=== PATIENT | male | born 1970 | race Caucasian/White ===

== ENCOUNTER 2020-09-28 13:28 | Emergency (ER) | payer MEDICAID, OTHER ==
[~2020-09-28] VITALS: Ht 167.6 cm; Wt 73.7 kg
[~2020-09-28 13:28] MED LIST: CYCL-1 PO; FLUT16SP26 BOTHNARES; HYDR12.522 PO; IBUP-1986 PO; PRED50TA PO
[2020-09-28] MEDS ORDERED: TETanus/Pertussis (Acell)/Diphther VAC/PF (Tdap-Adult) 0.5ml syringe IMVAC ONE (14:15)
[2020-09-28 14:33] LABS: BASOPHILS # (AUTO) 0.1 X10'3 (0-0.2); BASOPHILS % (AUTO) 0.5 % (0-1); EOSINOPHILS # (AUTO) 0.4 X10'3 (0-0.9); EOSINOPHILS % (AUTO) 2.8 % (0-6); HEMATOCRIT 47.1 % (42.0-52.0); HEMOGLOBIN 16.1 g/dl (14.0-17.9); LYMPHOCYTES # (AUTO) 1.2 X10'3 (1.1-4.8); LYMPHOCYTES % (AUTO) 9.3 % (21-51); MEAN CORPUSCULAR HEMOGLOBIN 29.4 PG (27.0-31.0); MEAN CORPUSCULAR HGB CONC 34.3 g/dL (33.0-36.5); MEAN CORPUSCULAR VOLUME 85.8 FL (78-98); MEAN PLATELET VOLUME 8.1 FL (7.4-10.4); MONOCYTES # (AUTO) 1.1 X10'3 (0-0.9); MONOCYTES % (AUTO) 9.3 % (2-12); NEUTROPHILS # (AUTO) 9.6 X10'3 (1.8-7.7); NEUTROPHILS % (AUTO) 78.1 % (42-75); PLATELET COUNT 294 X10'3 (140-440); RED BLOOD COUNT 5.48 X10'6 (4.70-6.10); RED CELL DISTRIBUTION WIDTH 13.4 % (11.5-14.5); WHITE BLOOD COUNT 12.3 X10'3 (4.5-11.0)
[2020-09-28 14:48] LABS: ALANINE AMINOTRANSFERASE 29 U/L (12-78); ALBUMIN 3.3 G/DL (3.4-5.0); ALBUMIN/GLOBULIN RATIO 0.9 (1.1-1.5); ALKALINE PHOSPHATASE 87 IU/L (46-116); ANION GAP 10 (8-16); ASPARTATE AMINO TRANSFERASE 15 U/L (10-37); BILIRUBIN,TOTAL 0.3 MG/DL (0.1-1.0); BLOOD UREA NITROGEN 18 MG/DL (7-18); BUN/CREATININE RATIO 16.1 (5.4-32.0); CALCIUM 8.4 MG/DL (8.5-10.1); CHLORIDE 107 MMOL/L (99-107); CREATININE 1.12 MG/DL (0.60-1.10); GLUCOSE 102 MG/DL (70-104); POTASSIUM 3.8 MMOL/L (3.5-5.1); SODIUM 140 MMOL/L (135-145); TOTAL CARBON DIOXIDE 22.6 MMOL/L (24-32); TOTAL PROTEIN 7.1 G/DL (6.4-8.2); eGFR 70 ML/MIN
[2020-09-28] MEDS ORDERED: CEPH250T PO (15:26)
[2020-09-28] MEDS ORDERED: CLOB30CR12 TOP (15:26)
[2020-09-28 15:47] VITALS: BP 159/114
== END 2020-09-28 15:50 | disposition home or self-care (01) ==
LOC: ER 13:28
DX: L03.115 Cellulitis of right lower limb (principal); L25.8 Unspecified contact dermatitis due to other agents; I10 Essential (primary) hypertension; Z79.2 Long term (current) use of antibiotics; Z79.899 Other long term (current) drug therapy
CPT/HCPCS: 36415; 73600; 73620; 80053; 83605; 84145; 85025; 87040; 90471; 90715; 99284

== ENCOUNTER 2021-12-14 08:00 | Emergency (ER) | payer MEDICAID ==
[~2021-12-14] VITALS: Ht 167.6 cm; Wt 79.5 kg
[~2021-12-14 08:00] MED LIST changes: +CLOB30CR12 TOP
[2021-12-14 08:41] LABS: CLARITY,URINE SLIGHTLY CLOUDY (Clear); COLOR,URINE YELLOW (Yellow); GLUCOSE, URINE NEGATIVE (Neg); KETONES,URINE NEGATIVE (Neg); LEUKOCYTE ESTERASE ,URINE NEGATIVE (Neg); NITRITES, URINE NEGATIVE (Neg); OCCULT BLOOD,URINE NEGATIVE (Neg); PH,URINE 6.5 (4.8-8.0); PROTEIN,URINE NEGATIVE (Neg)
[2021-12-14 08:43] LABS: BASOPHILS % (AUTO) 0.5 % (0-1); EOSINOPHILS # (AUTO) 0.2 X10'3 (0-0.9); HEMOGLOBIN 15.5 g/dl (14.0-17.9); LYMPHOCYTES # (AUTO) 1.7 X10'3 (1.1-4.8); LYMPHOCYTES % (AUTO) 21.1 % (21-51); MEAN CORPUSCULAR HEMOGLOBIN 29.1 PG (27.0-31.0); MEAN CORPUSCULAR HGB CONC 33.6 g/dL (33.0-36.5); MEAN CORPUSCULAR VOLUME 86.4 FL (78-98); MEAN PLATELET VOLUME 8.3 FL (7.4-10.4); MONOCYTES # (AUTO) 0.9 X10'3 (0-0.9); MONOCYTES % (AUTO) 11.7 % (2-12); NEUTROPHILS # (AUTO) 5.2 X10'3 (1.8-7.7); NEUTROPHILS % (AUTO) 64.7 % (42-75); PLATELET COUNT 273 X10'3 (140-440); RED BLOOD COUNT 5.33 X10'6 (4.70-6.10); RED CELL DISTRIBUTION WIDTH 13.6 % (11.5-14.5)
[2021-12-14] MEDS ORDERED: acetaminophen 325mg tablet PO STA (08:45)
[2021-12-14] MEDS ORDERED: normal saline 1000ML IV soln IV ONE (08:45)
[2021-12-14 08:52] LABS: ALANINE AMINOTRANSFERASE 55 U/L (12-78); ALKALINE PHOSPHATASE 75 IU/L (46-116); ANION GAP 9 (8-16); ASPARTATE AMINO TRANSFERASE 36 U/L (10-37); BILIRUBIN,TOTAL 0.4 MG/DL (0.1-1.0); BLOOD UREA NITROGEN 28 MG/DL (7-18); BUN/CREATININE RATIO 20.6 (5.4-32.0); CHLORIDE 108 MMOL/L (99-107); CREATININE 1.36 MG/DL (0.60-1.10); GLUCOSE 91 MG/DL (70-104); POTASSIUM 4.2 MMOL/L (3.5-5.1); SODIUM 145 MMOL/L (135-145); TOTAL PROTEIN 7.9 G/DL (6.4-8.2); eGFR 55 ML/MIN
[2021-12-14 09:36] LABS: UA COLLECTION TYPE CLN CATCH MIDSTREAM
[2021-12-14 09:37] LABS: BACTERIA,URINE FEW /HPF (Neg); CAL OXALATE CRYSTALS FEW /HPF (NEGATIVE); MUCUS STRANDS FEW /LPF (Neg); RBC,URINE 0-2 /HPF (0-2); SQUAMOUS EPITHELIAL CELL,UR FEW /LPF (FEW); WBC,URINE 0-4 /HPF (0-4)
[2021-12-14 09:38] LABS: AMORPHOUS URATES 2+; COARSE GRANULAR CAST 0-3 /LPF (NEGATIVE)
[2021-12-14] MEDS ORDERED: ipratropium/albuterol 3ml nebule NEB ONE (09:45)
[2021-12-14] MEDS ORDERED: methylPREDNISolone sod succ 125mg/2ml vial IV ONE (09:45)
[2021-12-14] MEDS ORDERED: AMOX-117 PO (09:48)
[2021-12-14] MEDS ORDERED: PRED20TA PO (09:48)
[2021-12-14] MEDS ORDERED: ALBU6.7H9 INH (09:48)
[2021-12-14 10:55] VITALS: BP 160/90
== END 2021-12-14 11:01 | disposition home or self-care (01) ==
LOC: ER 08:01
DX: J45.909 Unspecified asthma, uncomplicated (principal); Z20.822 Contact with and (suspected) exposure to COVID-19; I10 Essential (primary) hypertension; Z98.890 Other specified postprocedural states; Z79.2 Long term (current) use of antibiotics; Z79.899 Other long term (current) drug therapy
CPT/HCPCS: 36415; 71045; 80053; 81001; 83880; 84145; 84484; 85025; 87635; 93005; 94640; 96361; 96374; 99285; C9803; J2930; J7030; 94760

== ENCOUNTER 2023-02-05 21:31 | Emergency (ER) | payer MEDICAID ==
[~2023-02-05] VITALS: Ht 167.6 cm; Wt 79.0 kg
[~2023-02-05 21:31] MED LIST changes: +ALBU6.7H14 INH
[2023-02-05 21:35] VITALS: BP 193/136
[2023-02-05 22:20] LABS: ALANINE AMINOTRANSFERASE 27 U/L (12-78); ALBUMIN 3.9 G/DL (3.4-5.0); ALBUMIN/GLOBULIN RATIO 1.1 (1.1-1.5); ALKALINE PHOSPHATASE 101 IU/L (46-116); ANION GAP 8 (8-16); ASPARTATE AMINO TRANSFERASE 14 U/L (10-37); BILIRUBIN,TOTAL 0.3 MG/DL (0.1-1.0); BLOOD UREA NITROGEN 26 MG/DL (7-18); BUN/CREATININE RATIO 18.4 (10.0-20.0); CALCIUM 9.1 MG/DL (8.5-10.1); CHLORIDE 106 MMOL/L (99-107); CREATININE 1.41 MG/DL (0.60-1.10); GLUCOSE 100 MG/DL (70-104); LIPASE 76 U/L (73-393); SODIUM 141 MMOL/L (135-145); TOTAL CARBON DIOXIDE 27.4 MMOL/L (24-32); TOTAL PROTEIN 7.3 G/DL (6.4-8.2); eGFR 53 ML/MIN
[2023-02-05 22:21] LABS: BASOPHILS % (AUTO) 0.4 % (0-1); EOSINOPHILS # (AUTO) 0.1 X10'3 (0-0.9); EOSINOPHILS % (AUTO) 1.4 % (0-6); LYMPHOCYTES % (AUTO) 20.9 % (21-51); MEAN CORPUSCULAR HEMOGLOBIN 28.9 PG (27.0-31.0); MEAN CORPUSCULAR HGB CONC 33.3 g/dL (33.0-36.5); MEAN CORPUSCULAR VOLUME 86.7 FL (78-98); MEAN PLATELET VOLUME 8.4 FL (7.4-10.4); MONOCYTES # (AUTO) 0.9 X10'3 (0-0.9); MONOCYTES % (AUTO) 9.7 % (2-12); NEUTROPHILS # (AUTO) 6.3 X10'3 (1.8-7.7); NEUTROPHILS % (AUTO) 67.6 % (42-75); PLATELET COUNT 284 X10'3 (140-440); RED BLOOD COUNT 5.54 X10'6 (4.70-6.10); RED CELL DISTRIBUTION WIDTH 13.6 % (11.5-14.5); WHITE BLOOD COUNT 9.4 X10'3 (4.5-11.0)
[2023-02-05 22:27] LABS: CLARITY,URINE SLIGHTLY CLOUDY (Clear); COLOR,URINE YELLOW (Yellow); GLUCOSE, URINE NEGATIVE (Neg); KETONES,URINE NEGATIVE (Neg); LEUKOCYTE ESTERASE ,URINE TRACE (Neg); NITRITES, URINE NEGATIVE (Neg); OCCULT BLOOD,URINE MODERATE (Neg); PH,URINE 5.5 (4.8-8.0); PROTEIN,URINE NEGATIVE (Neg); UROBILINOGEN,URINE 0.2 E.U/dL (0.2-1.0)
[2023-02-05 22:28] LABS: UA COLLECTION TYPE CLN CATCH MIDSTREAM
[2023-02-05 22:43] LABS: WBC,URINE 30-50 /HPF (0-4)
[2023-02-05 22:44] LABS: BACTERIA,URINE FEW /HPF (Neg); SQUAMOUS EPITHELIAL CELL,UR FEW /LPF (FEW)
[2023-02-06] MEDS ORDERED: CefTRIAXone 250MG IM Kit w/LIDOcaine IM STA (00:52)
[2023-02-06] MEDS ORDERED: DOXY-1 PO (00:54)
[2023-02-06] MEDS ORDERED: azithromycin 250mg tablet PO ONE (00:55)
[2023-02-06] MEDS ORDERED: CefTRIAXone 500MG IM Kit w/LIDOcaine IM STA (00:56)
== END 2023-02-06 01:14 | disposition home or self-care (01) ==
LOC: ER 21:31
DX: R30.0 Dysuria (principal); Z11.3 Encounter for screening for infections with a predominantly sexual mode of transmission; I10 Essential (primary) hypertension
CPT/HCPCS: 36415; 80053; 81001; 83690; 85025; 87088; 87491; 87591; 96372; 99283; J0696

== ENCOUNTER 2023-08-10 23:55 | Emergency (ER) | payer MEDICAID ==
[~2023-08-10] VITALS: Ht 167.6 cm; Wt 77.3 kg
[2023-08-11] MEDS ORDERED: clindamycin 600mg/D5W 50ml 50 ML IV ONE (01:55)
[2023-08-11] MEDS ORDERED: normal saline 1000ml 1,000 ML IV ONE (01:55)
[2023-08-11] MEDS ORDERED: vancomycin/NS 1 GM ADD-VANTAGE 250 ML IV ONE (01:55)
[2023-08-11] MEDS ORDERED: TETanus/Pertussis (Acell)/Diphther VAC/PF (Tdap-Adult) 0.5ml syringe IMVAC ONE (01:55)
[2023-08-11] MEDS ORDERED: bacitracin 15gm ointment TP ONE (01:55)
[2023-08-11] MEDS ORDERED: ketorolac trometh. 30mg/ml inj. IV ONE (01:55)
[2023-08-11 02:24] LABS: BASOPHILS % (AUTO) 0.3 % (0-1); EOSINOPHILS # (AUTO) 0.2 X10'3 (0-0.9); EOSINOPHILS % (AUTO) 1.4 % (0-6); HEMATOCRIT 41.7 % (42.0-52.0); HEMOGLOBIN 13.9 g/dl (14.0-17.9); LYMPHOCYTES # (AUTO) 1.7 X10'3 (1.1-4.8); LYMPHOCYTES % (AUTO) 11.6 % (21-51); MEAN CORPUSCULAR HEMOGLOBIN 28.7 PG (27.0-31.0); MEAN CORPUSCULAR HGB CONC 33.4 g/dL (33.0-36.5); MEAN CORPUSCULAR VOLUME 85.9 FL (78-98); MONOCYTES # (AUTO) 1.5 X10'3 (0-0.9); NEUTROPHILS # (AUTO) 11.3 X10'3 (1.8-7.7); NEUTROPHILS % (AUTO) 76.7 % (42-75); PLATELET COUNT 312 X10'3 (140-440); RED BLOOD COUNT 4.85 X10'6 (4.70-6.10); RED CELL DISTRIBUTION WIDTH 13.1 % (11.5-14.5); WHITE BLOOD COUNT 14.7 X10'3 (4.5-11.0)
[2023-08-11 02:37] LABS: ALANINE AMINOTRANSFERASE 23 U/L (12-78); ALBUMIN 3.5 G/DL (3.4-5.0); ALBUMIN/GLOBULIN RATIO 0.8 (1.1-1.5); ALKALINE PHOSPHATASE 84 IU/L (46-116); ANION GAP 10 (8-16); ASPARTATE AMINO TRANSFERASE 23 U/L (10-37); BILIRUBIN,TOTAL 0.7 MG/DL (0.1-1.0); BLOOD UREA NITROGEN 17 MG/DL (7-18); BUN/CREATININE RATIO 12.9 (10.0-20.0); CALCIUM 8.9 MG/DL (8.5-10.1); CHLORIDE 103 MMOL/L (99-107); CREATININE 1.32 MG/DL (0.60-1.10); GLUCOSE 93 MG/DL (70-104); POTASSIUM 3.6 MMOL/L (3.5-5.1); SODIUM 139 MMOL/L (135-145); TOTAL CARBON DIOXIDE 25.6 MMOL/L (24-32); TOTAL PROTEIN 8.1 G/DL (6.4-8.2); eCRCL 59 ML/MIN; eGFR 57 ML/MIN
[2023-08-11] MEDS ORDERED: DOXY100C77 PO (03:31)
[2023-08-11] MEDS ORDERED: CLIN-214 PO (03:31)
[2023-08-11 05:55] VITALS: BP 133/91; PULSE 90; RESP 14; TEMP 98.1; O2SAT 96
== END 2023-08-11 06:07 | disposition home or self-care (01) ==
LOC: ER 23:56
DX: L02.415 Cutaneous abscess of right lower limb (principal)
CPT/HCPCS: 10060; 36415; 80053; 83605; 85025; 87040; 90471; 96365; 96366; 96367; 96375; 99284; J1885; J3370; J3490; J7030; A6449

== ENCOUNTER 2023-08-13 22:58 | Emergency (ER) | payer MEDICAID ==
[~2023-08-13] VITALS: Ht 167.6 cm; Wt 70.0 kg
[~2023-08-13 22:58] MED LIST changes: +CLIN-214 PO; +DOXY100C77 PO
[2023-08-13 23:35] VITALS: BP 140/85; PULSE 95; RESP 18; TEMP 98; O2SAT 99
== END 2023-08-13 23:36 | disposition home or self-care (01) ==
LOC: ER 22:59
DX: L02.415 Cutaneous abscess of right lower limb (principal); I10 Essential (primary) hypertension; Z79.899 Other long term (current) drug therapy; Z79.2 Long term (current) use of antibiotics; Z48.00 Encounter for change or removal of nonsurgical wound dressing
CPT/HCPCS: 99281

== ENCOUNTER 2023-08-15 15:33 | Emergency (ER) | payer MEDICAID ==
[~2023-08-15] VITALS: Ht 167.6 cm; Wt 78.2 kg
[2023-08-15 16:12] LABS: BASOPHILS # (AUTO) 0.1 X10'3 (0-0.2); BASOPHILS % (AUTO) 0.9 % (0-1); EOSINOPHILS # (AUTO) 0.2 X10'3 (0-0.9); EOSINOPHILS % (AUTO) 3.4 % (0-6); HEMATOCRIT 45.9 % (42.0-52.0); HEMOGLOBIN 15.6 g/dl (14.0-17.9); LYMPHOCYTES % (AUTO) 15.8 % (21-51); MEAN CORPUSCULAR HEMOGLOBIN 29.1 PG (27.0-31.0); MEAN CORPUSCULAR HGB CONC 34.1 g/dL (33.0-36.5); MEAN CORPUSCULAR VOLUME 85.4 FL (78-98); MEAN PLATELET VOLUME 7.5 FL (7.4-10.4); MONOCYTES # (AUTO) 0.5 X10'3 (0-0.9); MONOCYTES % (AUTO) 7.8 % (2-12); NEUTROPHILS # (AUTO) 4.6 X10'3 (1.8-7.7); NEUTROPHILS % (AUTO) 72.1 % (42-75); PLATELET COUNT 453 X10'3 (140-440); RED BLOOD COUNT 5.37 X10'6 (4.70-6.10); RED CELL DISTRIBUTION WIDTH 12.9 % (11.5-14.5); WHITE BLOOD COUNT 6.4 X10'3 (4.5-11.0)
[2023-08-15 16:25] LABS: ALANINE AMINOTRANSFERASE 24 U/L (12-78); ALBUMIN 3.1 G/DL (3.4-5.0); ALBUMIN/GLOBULIN RATIO 0.7 (1.1-1.5); ALKALINE PHOSPHATASE 80 IU/L (46-116); ANION GAP 4 (8-16); ASPARTATE AMINO TRANSFERASE 14 U/L (10-37); BILIRUBIN,TOTAL 0.3 MG/DL (0.1-1.0); BLOOD UREA NITROGEN 12 MG/DL (7-18); BUN/CREATININE RATIO 9.4 (10.0-20.0); CALCIUM 9.4 MG/DL (8.5-10.1); CHLORIDE 102 MMOL/L (99-107); CREATININE 1.27 MG/DL (0.60-1.10); GLUCOSE 91 MG/DL (70-104); POTASSIUM 4.5 MMOL/L (3.5-5.1); SODIUM 138 MMOL/L (135-145); TOTAL CARBON DIOXIDE 32.4 MMOL/L (24-32); TOTAL PROTEIN 7.6 G/DL (6.4-8.2); eGFR 60 ML/MIN
[2023-08-15 16:34] LABS: PRO BRAIN NATRIURETIC PEPTIDE 111 PG/ML (0-125)
[2023-08-15] MEDS ORDERED: LISI1TAB49 PO (19:47)
[2023-08-15 20:23] VITALS: BP 162/115; PULSE 89; RESP 18; TEMP 97.8; O2SAT 97
== END 2023-08-15 20:38 | disposition home or self-care (01) ==
LOC: ER 15:34
DX: I10 Essential (primary) hypertension (principal); H53.8 Other visual disturbances; Z79.899 Other long term (current) drug therapy; Z79.2 Long term (current) use of antibiotics
CPT/HCPCS: 36415; 80053; 83880; 84484; 85025; 93005; 99284

== ENCOUNTER 2025-04-01 12:06 | Inpatient (IN) | payer MEDICAID ==
[~2025-04-01] VITALS: Ht 165.1 cm; Wt 79.4 kg
[2025-04-01 10:05] VITALS: BP 129/85; PULSE 67; RESP 12; TEMP 97.7; O2SAT 98
[~2025-04-01 12:06] MED LIST changes: -DOXY100C77 PO; +LISI1TAB49 PO
--- NOTE | 2025-04-01 13:27 | Physician Documentation ---
History of Present Illness ~ Chief Complaint: Hypertension Stated Complaint: HIGH BLOOD PRESSURE Time Seen by MD: 12:48 Primary Medical Doctor: NONE Mode of Arrival: EMS HPI 54-year-old male presenting with elevated blood pressures. The patient reports that he has been off of his blood pressure medication for the past couple of months due to work and travel. Yesterday he started noticing a severe headache which was diffuse all around his head. He took his blood pressure last night and states that it was in the 200s. This morning once again he took his blood pressure and it continued to be elevated above the 200s. His headache had improved but he still has a slight headache. He also reports that he had some blurry vision yesterday which has now resolved. Denies any chest pain, shortness of breath or any other associated symptoms. Medication Reconciliation Allergies: Coded Allergies: No Known Allergies (Unverified , 08/11/23) Discontinued Medications Albuterol Sulfate (Proventil Hfa), 2 PUFFS INH Q6H Discontinued Reason: patient no longer taking Clindamycin HCl (Clindamycin HCl CAPSULE), 1 CAP PO TID Discontinued Reason: patient no longer taking Clobetasol Propionate/Emoll (Clobetasol Emollient 0.05% Crm), 1 APPLIC TOP Q12H Discontinued Reason: patient no longer taking Cyclobenzaprine* (Cyclobenzaprine*), 1 TABLET PO Q8H PRN for muscle spasms Discontinued Reason: patient no longer taking Fluticasone Propionate (Fluticasone Propionate), 2 SPRAYS BOTHNARES DAILY Discontinued Reason: patient no longer taking Hydrochlorothiazide* (Microzide*), 12.5 MG PO DAILY Discontinued Reason: patient no longer taking Ibuprofen (Ibuprofen), 1 TAB PO Q8H Discontinued Reason: patient no longer taking Lisinopril/Hydrochlorothiazide (Lisinopril-Hctz 10-12.5 mg Tab), 1 TAB PO DAILY Discontinued Reason: patient no longer taking Prednisone (Prednisone), 1 TAB PO DAILY Discontinued Reason: patient no longer taking Past Medical History Past Medical History: Hypertension Past Surgical History: orthopedic surgeries Alcohol Use: None Drug Use: none Lives In: Home Physical Exam Vital Signs: Temperature: 97.6, Source: Temporal, Heart Rate: 87, Respiratory Rate: 16, BP: 191/146, Pulse Oximetry: 99, Weight: 79.440 Oxygen Flow Rate: 0 Progress Results/Orders Results/Orders Orders - ROWDY RITCHIE MD Chest,Single View (04/01/25 13:24) Ct Head (04/01/25 13:38) Page Hospitalist (04/01/25 17:09) Fill Out Med Reconciliation (04/01/25 17:09) Completed Orders - ROWDY RITCHIE MD Cbc/Diff (04/01/25 13:24) Chest,Single View (04/01/25 13:24) MG (04/01/25 13:24) Ct Head (04/01/25 13:38) CMP (04/01/25 13:24) Hs Troponin I W Calculations (04/01/25 13:24) Hs Troponin I W Calculations (04/01/25 15:24) Clonidine Tablet (Catapres Tablet) (04/01/25 13:25) Lisinopril Tablet (Zestril Tablet) (04/01/25 15:10) Hydrochlorothiazide Tablet (Hydrochlorot (04/01/25 15:10) Labetalol Inj. (Trandate 20 Mg/4ml Syrin (04/01/25 17:10) Vital Signs 04/01/25 04/01/25 04/01/25 04/01/25 12:33 13:00 13:03 13:54 Temp 97.6 Pulse 87 87 90 Resp 18 16 16 12 B/P (MAP) 194/140 191/146 (161) 199/139 (159) Pulse Ox 98 99 99 O2 Flow Rate 0 0 04/01/25 04/01/25 04/01/25 04/01/25 15:17 16:04 16:05 17:26 Temp 97.6 Pulse 86 88 88 86 Resp 16 18 15 B/P (MAP) 176/134 (148) 184/133 (150) 124/81 (95) Pulse Ox 100 100 98 O2 Flow Rate 0 0 0 04/01/25 17:54 Pulse 83 Resp 14 B/P (MAP) 136/87 (103) Pulse Ox 96 O2 Flow Rate 0 Laboratory Tests Test 04/01/25 12:40 04/01/25 15:18 White Blood Count 8.1 Red Blood Count 5.44 Hemoglobin 16.1 Hematocrit 47.6 Mean Corpuscular Volume 87.5 Mean Corpuscular Hemoglobin 29.6 Mean Corpuscular Hemoglobin Concent 33.8 Red Cell Distribution Width 15.4 H Platelet Count 277 Mean Platelet Volume 8.4 Neutrophils (%) (Auto) 74.4 Lymphocytes (%) (Auto) 17.9 L Monocytes (%) (Auto) 6.5 Eosinophils (%) (Auto) 0.7 Basophils (%) (Auto) 0.5 Neutrophils # (Auto) 6.0 Lymphocytes # (Auto) 1.5 Monocytes # (Auto) 0.5 Eosinophils # (Auto) 0.1 Basophils # (Auto) 0.0 CBC Comment Sodium Level 138 Potassium Level 3.9 Chloride Level 103 Carbon Dioxide Level 27.5 Anion Gap 8 Blood Urea Nitrogen 13 Creatinine 1.31 H Estimated GFR/1.73 m2 57 BUN/Creatinine Ratio 9.9 L Glucose Level 80 Calcium Level 8.6 Magnesium Level 2.3 Total Bilirubin 1.0 Aspartate Amino Transf (AST/SGOT) 23 Alanine Aminotransferase (ALT/SGPT) 24 Alkaline Phosphatase 83 Troponin I High Sensitivity 9 9 Total Protein 7.7 Albumin 4.0 Globulin 3.7 Albumin/Globulin Ratio 1.1 Chemistry Comments Troponin I High Sens Percent Delta 0 Troponin I Hi Sens Absolute Change 0 EKG/XRAY/CT/US/VASC/MRI EKG : Additional Comment EKG as interpreted by me indicating normal sinus rhythm with a rate of 85 beats per minute, no ischemia, normal axis Chest X-Ray : Additional Comments CHEST RADIOGRAPH Indication: HTN Technique: Single frontal view of the chest was obtained COMPARISON: CHEST,SINGLE VIEW on DOS: 12/14/21 FINDINGS: Lines and Tubes: None Lungs: Clear Pleura: No effusion. No pneumothorax. Cardiomediastinal contours: Unremarkable Bones: Unremarkable IMPRESSION: No acute disease. : Impression EXAM: CT CT HEAD INDICATION: hypertensive urgency TECHNIQUE: CT of the head without intravenous contrast. Radiation Dose Information: CT Dose: CTDI volume is 58.16 mGy. Dose-length product is 1.69 mGy*cm The dose indicators for CT are the volume Computed Tomography (CT) Dose Index (CTDIvol) and the Dose Length Product (DLP), and are measured in units of mGy and mGy-cm, respectively. These indicators are not patient dose, but values generated from the CT scanner acquisition factors. The report includes radiation exposure data for exposures received during this examination. COMPARISON: None FINDINGS: There is no evidence of acute intracranial hemorrhage, extra-axial collection, mass effect, midline shift, herniation or hydrocephalus. The ventricles, sulci and cisterns are age appropriate. The lisa-white differentiation is intact. Patchy periventricular and subcortical white matter hypoattenuation is nonspecific but may be related to small vessel ischemic disease. The visualized paranasal sinuses and mastoid air cells are clear. The surrounding soft tissues and osseous structures are unremarkable. IMPRESSION: No acute intracranial abnormality. Medical Decision Making Additional Information 54-year-old male presenting with significantly elevated blood pressure. He qualifies for hypertensive malignant urgency. Patient was medicated 1st with p.o. clonidine 0.1 mg. He was then restarted on his home medications which included 25 mg of hydrochlorothiazide as well as 10 mg of p.o. lisinopril. This again failed to control his blood pressure. He was then given 10 mg of IV labetalol with only a mild improvement of his BP. Patient does have some elevated BUN and creatinine but this appears chronic for him. No other signs of any end-organ damage at this time. His CT of the head was negative. Patient will need admission for further treatment and care. Departure Disposition: ADMITTED INPATIENT Admitted to Inpatient Unit: to hospitalist Admission Level of Care: Med/Surg with Tele Impression: Primary Impression: Hypertensive urgency, malignant Referrals: NO PRIMARY CARE PROVIDER (PCP) Signature Scribe Signature: 1 Attestation: 1 ROWDY RITCHIE MD Apr 01, 2025 13:27
[2025-04-01 13:41] LABS: MEAN PLATELET VOLUME 8.4 FL (7.4-10.4); RED CELL DISTRIBUTION WIDTH 15.4 % (11.5-14.5)
[2025-04-01 13:53] LABS: CREATININE 1.31 MG/DL (0.60-1.10); TOTAL CARBON DIOXIDE 27.5 MMOL/L (24-32); eCRCL 57 ML/MIN; eGFR 57 ML/MIN
--- NOTE | 2025-04-01 13:54 | RADIOLOGY REPORT ---
EXAM: CT CT HEAD INDICATION: hypertensive urgency TECHNIQUE: CT of the head without intravenous contrast. Radiation Dose Information: CT Dose: CTDI volume is 58.16 mGy. Dose-length product is 1.69 mGy*cm The dose indicators for CT are the volume Computed Tomography (CT) Dose Index (CTDIvol) and the Dose Length Product (DLP), and are measured in units of mGy and mGy-cm, respectively. These indicators are not patient dose, but values generated from the CT scanner acquisition factors. The report includes radiation exposure data for exposures received during this examination. COMPARISON: None FINDINGS: There is no evidence of acute intracranial hemorrhage, extra-axial collection, mass effect, midline s hift, herniation or hydrocephalus. The ventricles, sulci and cisterns are age appropriate. The lisa-white differentiation is intact. Patchy periventricular and subcortical white matter hypoattenuation is nonspecific but may be related to small vessel ischemic disease. The visualized paranasal sinuses and mastoid air cells are clear. The surrounding soft tissues and osseous structures are unremarkable. IMPRESSION: No acute intracranial abnormality.
--- NOTE | 2025-04-01 14:30 | RADIOLOGY REPORT ---
CHEST RADIOGRAPH Indication: HTN Technique: Single frontal view of the chest was obtained COMPARISON: CHEST,SINGLE VIEW on DOS: 12/14/21 FINDINGS: Lines and Tubes: None Lungs: Clear Pleura: No effusion. No pneumothorax. Cardiomediastinal contours: Unremarkable Bones: Unremarkable IMPRESSION: No acute disease.
--- NOTE | 2025-04-01 17:20 | HISTORY AND PHYSICAL ---
History & Physical Providers to CC HIGH BLOOD PRESSURE, HEADACHES, left eye blurred vision ~ History of Present Illness Reason for Admit\Complaint: As above History of Present Illness This is a 54-year-old male, with history of uncontrolled hypertension, history of low-back pain chronic, bronchial asthma, history of hypertensive emergency one year ago associated with similar symptoms left eye blurred vision, consulted by screen printing supervisor, presented today to emergency department chief complaint high blood pressure associated with headaches and left eye blurred vision; in addition patient is presenting with elevated blood pressures. The patient reports that he has been off of his blood pressure medication for the past couple of months due to work and travel. Yesterday he started noticing a severe headache which was diffuse all around his head. He took his blood pressure last night and states that it was in the 200s. This morning once again he took his blood pressure and it continued to be elevated above the 200s. His headache had improved but he still has a slight headache. He also reports that he had some blurry vision yesterday which has now resolved. Denies any chest pain, shortness of breath or any other associated symptoms. Emergency department he was evaluated by physician was diagnosed with hypertensive emergency left eye blurred vision, and decision was made to admit patient for further evaluation treatment, no additional complaint or concern, patient started on labetalol, prn. Allergies: Coded Allergies: No Known Allergies (Unverified , 08/11/23) Home Medications Home Medications Active Lisinopril-Hctz 10-12.5 mg Tab (Lisinopril/Hydrochlorothiazide) 10 Mg-12.5 Mg Tablet 1 Tab PO DAILY 30 Days Clindamycin HCl CAPSULE (Clindamycin HCl) 150 Mg Capsule 1 Cap PO TID Proventil Hfa (Albuterol Sulfate) 6.7 Gm Hfa.aer.ad 2 Puffs INH Q6H Clobetasol Emollient 0.05% Crm (Clobetasol Propionate) 30 Gm Cream..g. 1 Applic TOP Q12H 15 Days Cyclobenzaprine* (Cyclobenzaprine HCl) 10 Mg Tablet 1 Tablet PO Q8H PRN Fluticasone Propionate 1 Spr Spr 2 Sprays BOTHNARES DAILY 30 Days Prednisone 50 Mg Tablet 1 Tab PO DAILY 5 Days Ibuprofen 800 Mg Tablet 1 Tab PO Q8H 10 Days Microzide* (Hydrochlorothiazide) 12.5 Mg Capsule 12.5 Mg PO DAILY Past Medical History Past Medical History As in HPI Past Surgical History Surgical History Comment As in HPI Past Social History Social History Comment Deny illicit drug use alcohol use or tobacco use live with the family good social support, not employed now Health Maintenance Health Maintenance Non ROS ROS Constitutional : no fever , no chills, or weakness. No diaphoresis. Allergic/Immunologic, no lymphadenopathy, no hives, no skin eruptions. Eyes, no recent visual changes, no eye pain, no photophobia. Ears, nose, mouth, throat, no sore throat, no nosebleed, no ear pain. Cardiovascular, CT for elevated blood pressure no palpitations, skipped beats, chest pain, no peripheral edema, Respiratory, no dyspnea, orthopnea, cough, hemoptysis, chest wall pain. Gastrointestinal, no abdominal pain, nausea, vomiting, constipation or diarrhea. : no dysuria, hematuria, pelvic pain, urethral d/c. Endocrine, no polyuria, polydipsia, recent unintentional weight gain or loss. Hematologic/Lymphatic, no petechiae, no enlarged lymph nodes, no bone pain. Integumentary, no rash, no skin lesions, Musculoskeletal, no muscle aches, or pain, no muscle cramps, no recent change in gait Neurological, no dizziness, positive for left eye blurred vision, headache, no syncope, no paresthesia. Psychiatric, no delusions, visual hallucinations, or hearing hallucinations. ROS - in rest is as in HPI. Exam Vitals: Vital Signs Date Time Temp Pulse Resp B/P (MAP) Pulse Ox O2 Delivery O2 Flow Rate FiO2 04/01/25 16:05 88 18 184/133 (150) 100 0 04/01/25 15:17 97.6 Vital signs, stable ,afebrile, blood pressure on admission 194/140,. Pulse Oximetry reflects adequate oxygenation. BMI is 29, weight 79 kg General: well developed, well nourished. Awake , alert, and oriented x4, resting comfortably in the bed, in no acute distress . Skin: Warm, dry, no pallor, no rash or petechiae. HEENT: Atraumatic, normocephalic, EOMI, anicteric sclera B; pink conjunctiva; PERRLA, normal oropharynx, moist oral and nasal mucosa. Tympanic membrane , nose , throat clear. Neck: Trachea midline. Supple, full range of motion, no JVD, bruit , hepatojugular reflex , lymphadenopathy or masses, or other lesions Cardiac: Regular rhythm, regular rate no murmurs, rubs, or gallops. Normal S1 and S2, no S3 noticed. PMI is normal. Respiratory: Equal breath sounds bilaterally, no tachypnea; lungs clear to auscultation bilaterally, no wheezing ,rub or rales, or crackles. Chest wall is symmetric and without deformity. No signs of trauma. Chest wall is nontender. No signs of respiratory distress. Resonance is normal upon percussion bilaterally. Gastrointestinal: Abdomen symmetric, non-distended, soft, non-tender, normal bowel sounds x4 quadrant, normoactive, no hepatosplenomegaly , no masses , no bruit, no flank pain bilaterally. No voluntary guarding, rebound, or rigidity. No tenderness to percussion. No pulsatile masses. Equal femoral pulses. No Napier's sign or McBurney point tenderness. Back; no CVA tenderness bilaterally, no deformities. Neck and back are without deformity as well. No tenderness noted on palpation of the spinous processes. Spinous processes are midline. Cervical, thoracic, and lumbar paraspinal muscles are not tender and are without spasm. : normal external genitalia, without lesions, swelling, masses or tenderness. Musculoskeletal: Extremities, normal range of motion, non-tender, muscle strength 5/5 x 4. Negative Homans signs bilaterally on lower extremity. Distal pulses full symmetrical, no clubbing, cyanosis , edema. Neurological: Speech is clear, alert, and oriented x 4. No motor or sensory deficit, deep tendon reflexes normal, cerebellar intact. Cranial nerves II-XII intact. Psych: Alert and or appropriate, normal affect. Vascular: Good distal pulses, which are equal x4; capillary refill less than 2 seconds. Lymphatic, no lymphadenopathy. Diagnostic Data Last Recorded Lab Results: 04/01/25 1240 04/01/25 1240 Advance Care Planning Advanced Care plannin - 30 Minutes Additional Plan Assessment Hypertensive emergency Hypertensive encephalopathy associated with acute headaches Acute left eye blurry vision secondary to all of the above History of hypertensive emergency associated with left eye blurry vision one year ago Additional comorbidities, history of low-back pain chronic, and chronic bronchial asthma Plan Control blood pressure, IV fluids keep patient well hydrated euvolemic MRI of the head pending Echocardiography pending Additional lab work pending I reconciled home medications Pain control, p.o. IV analgesics DVT gastropathy prophylaxis addressed Sepsis Screening Reassessment Date: Apr 01, 2025 Date of Service: Apr 01, 2025 Billing Provider: TIBURCIO RODRIGUEZ MD Common Visit Codes: 39653-[id number] INP/OBS CARE(HIGH) Secondary Visit Codes: 70873-[id number] CARE PLAN ADDL 30MIN TIBURCIO RODRIGUEZ MD Apr 01, 2025 17:20
[2025-04-01] MEDS: labetalol 20mg/4ml (5mg/ml) syringe IV ONE (17:22)
[2025-04-01] MEDS ORDERED: magnesium sulf-water 2g/50mL 50 ML IV PRN (18:05)
[2025-04-01] MEDS ORDERED: magnesium sulf-water 4G/100mL 100 ML IV PRN (18:05)
[2025-04-01] MEDS ORDERED: mag hydrox/Alum hydrox/simeth 30ml oral suspension PO PRN (18:05)
[2025-04-01] MEDS ORDERED: magnesium Cl slow-release 64mg tablet PO PRN (18:05)
[2025-04-01] MEDS ORDERED: magnesium hydroxide 30ml (MOM) UD suspension PO PRN (18:05)
[2025-04-01] MEDS ORDERED: ondansetron 4mg rapidly disintigrating tab PO PRN (18:05)
[2025-04-01] MEDS ORDERED: ondansetron/PF 4mg/2ml inj IV PRN (18:05)
[2025-04-01] MEDS ORDERED: potassium Cl 20 mEq SR tablet PO PRN ×2 (18:05)
[2025-04-01] MEDS ORDERED: bisacodyl 10mg suppository rectal RC PRN (18:05)
[2025-04-01] MEDS ORDERED: potassium Cl 40MEQ/1/2NS 520ml 520 ML IV PRN (18:05)
[2025-04-01] MEDS ORDERED: HYDROcodone/acetaminophen 10/325mg tab PO PRN (18:05)
[2025-04-01] MEDS ORDERED: acetaminophen 650mg rectal suppository RC PRN (18:05)
[2025-04-01] MEDS ORDERED: metoclopramide 5 mg/ml inj IV PRN (18:05)
[2025-04-01] MEDS ORDERED: HYDROcodone/acetaminophen 5mg/325mg tablet PO PRN (18:05)
[2025-04-01 18:55] LABS: APTT 27 SECONDS (22-32); INR 1.0 INR
[2025-04-01 19:05] LABS: PHOSPHORUS 2.3 MG/DL (2.3-4.5); PRO BRAIN NATRIURETIC PEPTIDE 67 PG/ML (0-125)
[2025-04-01 19:07] LABS: ETHANOL < 10 MG/DL (<10)
[2025-04-01] MEDS: K and/or MAG REPLACEMENT MC SCH (20:00)
[2025-04-01] MEDS: docusate sod 100mg capsule PO SCH (20:00)
--- NOTE | 2025-04-01 21:29 | RADIOLOGY REPORT ---
Exam: CT CT CHEST ABDOMEN PELVIS History: adrenal ademoma Comparison Study: DI CHEST,SINGLE VIEW on DOS: 04/01/25, CHEST,SINGLE VIEW on DOS: 12/14/21 Technique: Multidetector CT of the chest, abdomen and pelvis was performed from lower neck to pubic s ymphysis. Intravenous contrast was administered during this examination. Axial, coronal and sagittal multiplanar reformats were performed by the technologist on a separate workstation. Radiation Dose Information: Dose-length product is 1612 mGy*cm Findings: Lower neck: unremarkable Lungs/pleura: No focal consolidations. Trace left base effusion. Heart/Vascular Structures: normal size. mild coronary atherosclerosis. Lymph Nodes: No adenopathy Liver: The liver is normal in size. No focal lesions. Normal hepatic vascular enhancement. Gallbladder and Biliary Tree: Unremarkable Spleen: Unremarkable Pancreas: The pancreas is normal in appearance without focal lesions or abnormal enhancement. Adrenal Glands: left adrenal gland nodularity. The right adrenal gland is unremarkable. Kidneys: Kidneys demonstrate normal symmetric enhancement without focal lesions, calculi or hydroneph rosis. Bladder: Unremarkable Bowel: The stomach is grossly normal in appearance. Small bowel and colon are normal in caliber and d istribution. The appendix is normal. Colonic diverticulosis without diverticulitis. Ascites: Absent Lymphadenopathy: No mesenteric, retroperitoneal or periportal lymphadenopathy. Abdominal Wall and Mesentery: Unremarkable. Vasculature: The visualized abdominal aorta is normal in size and caliber. Abdominal and pelvic vess els demonstrate normal enhancement. mild atherosclerosis without abdominal vasculature. Pelvic Organs: Unremarkable Musculoskeletal: No aggressive focal bony lesions, acute fractures or dislocation. bilateral small fa t containing inguinal hernia. IMPRESSION: limited evaluation in the absence of IV contrast. Left adrenal gland nodularity without definite mass. No significant lymphadenopathy. No acute intra-abdominal process.
[2025-04-01 22:05] VITALS: BP 129/85; PULSE 67; RESP 12; TEMP 97.7; O2SAT 98
[2025-04-01 22:55] LABS: URINE AMPHETAMINE SCREEN POSITIVE (Neg); URINE BARBITUATE SCREEN NEGATIVE (Neg); URINE BENZODIAZEPINES SCREEN NEGATIVE (Neg); URINE CANNABINOID SCREEN NEGATIVE (Neg); URINE COCAINE SCREEN NEGATIVE (Neg); URINE METHADONE SCREEN NEGATIVE (Neg); URINE OPIATE SCREEN NEGATIVE (Neg); URINE PHENCYCLIDINE SCREEN NEGATIVE (Neg)
[2025-04-02 02:00] VITALS: BP 118/85; PULSE 68; RESP 15; TEMP 97.5; O2SAT 98
[2025-04-02 06:00] VITALS: BP 144/94; PULSE 79; RESP 11; TEMP 97; O2SAT 98
--- NOTE | 2025-04-02 06:29 | ELECTROCARDIOGRAPH REPORT ---
[facility] Test Date: 2025-04-01 Test Time: 12:39:42 Pat Name: SANA SANTOS Department: EMERGENCY ROOM Room: [place] [address] B Gender: M Touch Up Edger: : 1970 Requested By: TIBURCIO RODRIGUEZ Order Number: [id number] Reading MD: Dr. Dayo Robledo Measurements Intervals [place] Rate: 85 P: 59 IN: 140 QRS: 189 QRSD: 100 T: 30 QT: 404 QTc: 481 Interpretive Statements Sinus rhythm Consider right ventricular hypertrophy ST elev, probable normal early repol pattern Borderline prolonged QT interval Electronically Signed On 04-02-2025 20:05:[address] Dayo Robledo Please click the below link to view image of tracing.
[2025-04-02 06:36] LABS: MEAN PLATELET VOLUME 8.0 FL (7.4-10.4); RED CELL DISTRIBUTION WIDTH 15.1 % (11.5-14.5)
[2025-04-02 08:00] VITALS: RESP 11; O2SAT 98
[2025-04-02 08:33] LABS: CHOL/HDL RATIO 2.7 (0.00-4.99); CREATININE 1.27 MG/DL (0.60-1.10); LDL CHOLESTEROL 84 MG/DL (50-100); TOTAL CARBON DIOXIDE 28.1 MMOL/L (24-32); eCRCL 59 ML/MIN; eGFR 59 ML/MIN
[2025-04-02] MEDS: pantoprazole 40mg Tablet.DR PO SCH (09:57)
[2025-04-02 11:00] VITALS: BP 126/87; PULSE 77; RESP 14; TEMP 97.5; O2SAT 96
[2025-04-02] MEDS ORDERED: ipratropium/albuterol 3ml nebule NEB PRN (12:05)
[2025-04-02] MEDS ORDERED: albuterol 2.5 MG/3 ML nebule NEB PRN (12:05)
--- NOTE | 2025-04-02 12:09 | PROGRESS NOTE ---
Daily Progress Note Providers to CC ~ Objective Vital Signs Date Time Temp Pulse Resp B/P (MAP) Pulse Ox O2 Delivery O2 Flow Rate FiO2 04/02/25 11:00 97.5 77 14 126/87 (100) 96 Room Air 04/02/25 08:00 0.0 Result Diagram: 04/02/25 0614 04/02/2514 Coagulation Studies Laboratory Tests Test 04/01/25 18:26 Prothrombin Time 10.6 SECONDS (9.0-12.0) INR International Normalized Ratio 1.0 INR Activated Partial Thromboplast Time 27 SECONDS (22-32) Coagulation Comments Problem\Assessment\Plan VI HENNESSY SAFETY CONSULTANT Apr 02, 2025 12:09
[2025-04-02] MEDS: normal saline 1000ml 1,000 ML IV SCH (12:10)
[2025-04-02] MEDS ORDERED: LISI20TA28 PO (12:46)
[2025-04-02] MEDS ORDERED: NOR5T PO (12:46)
[2025-04-02] MEDS ORDERED: ASPI81TA52 PO (12:46)
[2025-04-02] MEDS ORDERED: hyDRALAzine tablet PO (12:46)
[2025-04-02 13:00] VITALS: PULSE 86; RESP 16; O2SAT 96
--- NOTE | 2025-04-02 14:13 | DISCHARGE SUMMARY ---
Discharge Summary Providers to CC ~ Discharge Summary Admission Diagnosis: HTN emergency; r/o CVA Hospital Course DATE OF ADMISSION: 04/01/25 DATE OF DISCHARGE: 04/02/25 Discharge Diagnosis\Comment: Hypertensive emergency Metabolic encephalopathy 2/2 above Medication non-compliance JONATHON- unable to exclude Chronic lower back pain Asthma, not in exacerbation CVA- unable to exclude, unlikely Operations\Procedures: None Consultants: None Complications: None Condition on DC: Stable New Medications: Aspirin (Aspirin EC) 81 Mg Tablet.dr 1 TAB PO DAILY for 30 Days, #30 TAB Amlodipine Besylate (Amlodipine Besylate) 5 Mg Tablet 10 MG PO DAILY for 90 Days, #90 TAB [hyDRALAzine tablet] () 10 MG TABLET 10 MG PO Q8H for 30 Days, #90 Lisinopril (Lisinopril) 20 Mg Tablet 20 MG PO DAILY for 90 Days, #90 TAB Discharge Summary: Hospital Course Michael David is a 54-year-old male with past medical history of hypertension, medication noncompliance, asthma who presented to the ED with chief complaint of profoundly elevated blood pressure with systolic in 200s, blurry vision of left eye, headache. Patient reported that he had been off of his blood pressure medication for several months. Initial findings were notable for markedly elevated blood pressure with systolic at 199. Pertinent negative findings were negative troponin series, CT abdomen/pelvis showing left adrenal gland nodularity without definite mass, negative head CT. Patient was treated with antihypertensives which he responded well to. Telemetry remained sinus in 60s. Patient did not experience further complications throughout the entire hospital stay and made a good recovery earlier than expected. Patient's reported symptoms of blurry vision and headache resolved significantly and patient verbalizes willingness to be discharged. MRI head was refused by the patient. Patient was seen and examined on the day of discharge. On day of discharge, vss and labs unremarkable. All labs, diagnostic workups, discharge plan discussed with patient in details during visit before discharge. All questions and concerns answered to the best of my professional knowledge. Patient is to be discharged to home to self and to follow up with PCP within 2 weeks. Physical Exam General: A&Ox 3, NAD HEENT: Normocephalic, PERRLA Neck: Supple, trachea midline, no JVD Chest: Clear to auscultation bilaterally Cardiovascular: RRR, S1&S2 GI: Soft and nontender Extremities: No cyanosis/clubbing/or edema BACKPACKERS MANAGER: CN II-XII intact, no focal deficits Musculoskeletal: No paraspinal muscle tenderness, no muscle spasm Skin: Warm and intact *Problems/Diagnosis: (1) Hypertensive emergency Status: Acute Total Time Spent on D/C: > 30 Minutes Date of Service: Apr 02, 2025 Billing Provider: VI HENNESSY Common Visit Codes: 43714-KQO/OBS DISCH DAY >30min VI HENNESSY Apr 02, 2025 14:11
--- NOTE | 2025-04-03 06:07 | CARDIOLOGY REPORT ---
APPROVED REPORT EXAM: Comprehensive 2D, Doppler, and color-flow Echocardiogram. Patient Location: [address] Blood Pressure: 144/94 mmHg Heart Rate: 84 bpm Rhythm: SINUS Indications HYPERTENSIVE EMERGENCY CVA Volunteer Services Coordinator: none Previous echo: none 2D Dimensions RVDd 2.5 cm LA Diam4.4 cm IVSd 1.2 (0.7-1.1cm) LVDd 3.3 cm PWd 1.4 (0.7-1.1cm) IVSs 1.6 (0.8-1.2cm) LVDs 2.5 (2.5-4.0cm) PWs 1.8 (0.8-1.2cm) LVOT Diameter 2.09 (1.8-2.4cm) LVEF(%) 71.2 (>50%) Ao Asc Diam.3.41 cmFS (%) 25.3 % SV 22.9 ml CO 2.8 L/min M-Mode Dimensions Left Atrium(MM) 2.59 (2.5-4.0cm) IVSd 1.25 (0.7-1.1cm) LVDd 3.52 (4.0-5.6cm) Aortic Root 3.04 (2.2-3.7cm) PWd 1.28 (0.7-1.1cm) Aortic Cusp Exc 1.99 (1.5-2.0cm) IVSs 1.67 cm MV EPSS 0.5 (<0.5cm) LVDs 2.11 (2.0-3.8cm) FS (%) 40 % PWs 2.18 cm ESV(Teich) 14.7 ml LVEF(%) 72 (>50%) Biplane 2D LA Volumes LA ESV Index 15.61 mL/m2 Aortic Valve AoV Peak Andrey. 125.0 cm/s AoV VTI 17.5 cm AO Peak GR. 6.2 mmHg AO Mean GR. 3 mmHg LVOT VTI 20.41 cm LVOT Peak Andrey. 118.0 cm/s ANNE MARIE(VTI)/BSA 4.02 cm2/m2 ANNE MARIE (VTI) 4.02 cm2 Mitral Valve MV E Velocity 52.9 cm/s MV Peak Gr. 3 mmHg MV DECEL TIME 272 ms MV A Velocity 68.9 cm/s MV PHT 56 ms E/A Ratio 0.8 MVA (PHT) 3.93 cm2 MV VMax82.5 cm/s TDI Medial E' P. V 5.44 cm/s E/Medial E' 9.7 Pulmonary Vein S1 Velocity 75.6 cm/s D2 Velocity 40.2 cm/s PVa [id number] cm/s PVa [id number] msec LEFT VENTRICLE Reduced LV size and hyperdynamic function. Mild concentric hypertrophy. Appearance of LVOT obstructio n due to hyperdynamic/hypovolemic LV without significant gradient. LV gradient measures 3 mmHg at res t, increasing to 8 mmHg with Valsalva maneuver. LVEF is 70-75%. RIGHT VENTRICLE RV is normal size and function. ATRIA LA size is normal. RA size is normal. AORTIC VALVE Trileaflet AV appears mildly sclerotic without stenosis or insufficiency. MITRAL VALVE Mild MV annular calcification without stenosis. Trace regurgitation. TRICUSPID VALVE TV appears structurally normal with trace regurgitation. PULMONIC VALVE Normal PV without stenosis, physiologic insufficiency. GREAT VESSELS Aortic root is normal in size. Ascending aorta is normal in size. PERICARDIUM Normal pericardium. No effusion. Other Information Study Quality: Adequate Conclusion Reduced LV size and hyperdynamic function. Mild concentric hypertrophy. Appearance of LVOT obstructi on due to hyperdynamic/hypovolemic LV without significant gradient. LV gradient measures [address], increasing to 8 mmHg with Valsalva maneuver. LVEF is 70-75%. RV is normal size and function. LA size is normal. RA size is normal. Trileaflet AV appears mildly sclerotic without stenosis or insufficiency. Mild MV annular calcification without stenosis. Trace regurgitation. TV appears structurally normal with trace regurgitation. Normal pericardium. No effusion.
== END 2025-04-02 14:09 | disposition home or self-care (01) | DRG 199 ==
LOC: ER 12:07 → ED HOLD 18:09 → PCU 3S 21:55
PROVIDERS: ADMIT Family Medicine; ATTEND Family Medicine
PROC: BW251ZZ Computerized Tomography (CT Scan) of Chest, Abdomen and Pelvis using Low Osmolar Contrast (ICD-10-PCS; principal; 2025-04-01)
DX: I16.1 Hypertensive emergency (principal); G93.41 Metabolic encephalopathy; I67.4 Hypertensive encephalopathy; N17.9 Acute kidney failure, unspecified; E27.8 Other specified disorders of adrenal gland; J45.909 Unspecified asthma, uncomplicated; I10 Essential (primary) hypertension; G89.29 Other chronic pain; M54.59 Other low back pain; Z79.899 Other long term (current) drug therapy; Z91.148 Patient's other noncompliance with medication regimen for other reason
CPT/HCPCS: 36415; 70450; 71045; 71250; 74176; 80053; 80061; 80305; 80320; 82088; 82550; 83036; 83735; 83835; 83880; 84100; 84244; 84443; 84484; 85025; 85610; 85730; 87081; 93005; 93306; 94760; 96374; 99285; G0378; J3490